=== PATIENT | male | born 1950 | race Two or more races ===

== ENCOUNTER → 2019-05-05 | Outpatient (CLI) | payer SELFPAY ==
[2019-05-05 13:53] LABS: Stool Occult Bld Immuno 1 Negative (NEGATIVE)
== END | disposition home or self-care (01) ==
LOC: LAB SHORT 10:06 → LAB 10:06
PROVIDERS: Nurse Practitioner Family
DX: Z00.00 Encounter for general adult medical examination without abnormal findings (principal); Z11.59 Encounter for screening for other viral diseases; Z12.11 Encounter for screening for malignant neoplasm of colon; Z12.5 Encounter for screening for malignant neoplasm of prostate
CPT/HCPCS: G0328

== ENCOUNTER 2024-04-11 09:00 | Day surgery (SDC) | payer MEDICARE ==
[~2024-04-11] VITALS: Ht 172.7 cm; Wt 78.4 kg
[~2024-04-11 09:00] MED LIST: Lactated Ringer's 1,000 ML IV ONE; propofoL 50 ML IV ONE
--- NOTE | 2024-04-11 09:38 | NUR ---
04/11/24 0938 Mariela Estrada PT DECLINED INTERPERTER
[2024-04-11] MEDS ORDERED: Lactated Ringer's 1,000 ML IV ONE (10:07)
[2024-04-11 10:53] VITALS: BP 104/64
== END 2024-04-11 11:04 | disposition home or self-care (01) ==
LOC: ORSCSDS 09:00
PROVIDERS: Surgery
PROC: 0DBN8ZX Excision of Sigmoid Colon, Via Natural or Artificial Opening Endoscopic, Diagnostic (ICD-10-PCS; principal; 2024-04-11 10:15)
DX: Z12.11 Encounter for screening for malignant neoplasm of colon (principal); K63.5 Polyp of colon; K57.30 Diverticulosis of large intestine without perforation or abscess without bleeding; K64.8 Other hemorrhoids; Z87.891 Personal history of nicotine dependence
CPT/HCPCS: 88305; J2704; J7120

== ENCOUNTER 2024-06-10 16:32 | Emergency (ER) | payer MEDICARE ==
[~2024-06-10] VITALS: Ht 172.7 cm; Wt 79.4 kg
[2024-06-10 16:35] VITALS: BP 156/97
[2024-06-10] MEDS ORDERED: Ketorolac Tromethamine 15mg Vial IM ONE (17:50)
[2024-06-10] MEDS ORDERED: Lidocaine 4% 1 Patch TOP ONE (17:50)
[2024-06-10] MEDS ORDERED: ASPERFLEX1 EACH TOP (17:52)
[2024-06-10] MEDS ORDERED: Robaxin750 MG PO (17:52)
== END 2024-06-10 18:03 | disposition home or self-care (01) ==
LOC: ER 16:32
DX: M54.41 Lumbago with sciatica, right side (principal)
CPT/HCPCS: 96372; 99283-25; A9270; J1885